=== PATIENT | male | born 1960 | race Caucasian/White ===

== ENCOUNTER 2017-11-21 15:04 | Emergency (ER) | payer OTHER ==
[~2017-11-21] VITALS: Ht 165.1 cm; Wt 68.2 kg
[2017-11-21] MEDS ORDERED: IBUPROFEN 800 MG TABLET PO ONE (15:30)
[2017-11-21] MEDS ORDERED: ACYCLOVIR 200 MG CAPSULE PO ONE (15:30)
[2017-11-21 15:43] VITALS: BP 141/91
[2017-11-21] MEDS ORDERED: PROPARACAINE/FLUORESCEIN SOD 0.5-0.25% 0.5 ML OPHTHALMIC SOLUTION OS ONE (16:00)
== END 2017-11-21 17:43 | disposition home or self-care (01) ==
LOC: EDBD 15:06 → EMS 15:06
DX: B02.9 Zoster without complications (principal); R51 Headache
CPT/HCPCS: 99284; Z7610